=== PATIENT | female | born 1965 | race Caucasian/White ===

== ENCOUNTER 2017-02-08 13:07 | Emergency (ER) | payer BC ==
[2017-02-08 14:54] VITALS: BP 100/59
--- NOTE | 2017-02-08 15:52 | UC ---
Respiratory Complaint HPI - HPI Summary HPI Summary: Increasingly SOB, coughing with speaking or deep insp. Pt was seen 02/03/17 here for this, CXR read as "patchy infiltration in LLL." Was started on doxycycline, had d-dimer that was <200. Has lots of pain/discomfort in L lower ribs/chest, feels like she needs to stretch it out. Constantly air-hungry, breathing deeply. Pt is finding it hard to complete normal household tasks such as laundry. Denies fever, chills, leg pain, or wheezing. - History of Current Complaint Chief Complaint: UCGeneralIllness Stated Complaint: FU PNEUMONIA Time Seen by Provider: 02/08/17 15:31 Hx Obtained From: Patient Hx Last Menstrual Period: n/a ?: No Onset/Duration: Gradual Onset, Lasting Weeks, Still Present Timing: Constant Severity Initially: Mild Severity Currently: Moderate Character: Cough: Nonproductive Aggravating Factors: Exertion, Deep Breaths Associated Signs And Symptoms: Positive: Dyspnea. Negative: Fever, Chills, Wheezing, Hemoptysis, Nasal Congestion - Allergies/Home Medications Allergies/Adverse Reactions: Allergies Allergy/AdvReac Type Severity Reaction Status Date / Time phenylsudephedrine Allergy Palpitation Uncoded 02/08/17 14:54 s SINUS MED Allergy Palpitation Uncoded 02/08/17 14:54 s PMH/Surg Hx/FS Hx/Imm Hx - Additional Past Medical History Additional PMH: lupus Endocrine History: Hypothyroidism Respiratory History: Asthma Psychological History: Anxiety - Surgical History Surgical History: Yes Surgery Procedure, Year, and Place: HYSTERECTOMY 2006 - Family History Known Family History: Negative: Diabetes - Social History Alcohol Use: Rare Substance Use Type: None Smoking Status (MU): Former Smoker When Did the Patient Quit Smoking/Using Tobacco: A TEEN - Immunization History Most Recent Influenza Vaccination: NOT CURRENT Review of Systems Constitutional: Negative Skin: Negative Eyes: Negative ENT: Negative Respiratory: Shortness Of Breath, Cough Cardiovascular: Negative Gastrointestinal: Negative Genitourinary: Negative Motor: Negative Neurovascular: Negative Musculoskeletal: Negative Neurological: Negative Psychological: Negative Is Patient Immunocompromised?: Yes All Other Systems Reviewed And Are Negative: Yes Physical Exam Triage Information Reviewed: Yes Appearance: Well-Nourished, Other: - uncomfortable, changing positions often Vital Signs: Initial Vital Signs Temp 98.6 F 02/08/17 14:49 Pulse 99 11/13/17 14:49 Resp 18 02/08/17 14:49 BP 100/59 02/08/17 14:49 Pulse Ox 97 02/08/17 14:49 Vital Signs Reviewed: Yes Eye Exam: Normal Eyes: Positive: Conjunctiva Clear ENT Exam: Normal ENT: Positive: Normal ENT inspection, Hearing grossly normal, Pharynx normal, TMs normal Neck exam: Normal Respiratory: Positive: Lungs clear, Normal breath sounds, Other: - increased RR , deep-breathing and frequent sighing Cardiovascular: Positive: No Murmur, Tachycardia - 95-100 on exam Musculoskeletal Exam: Normal - walking normally, moving all extremities Psychological Exam: Normal Skin Exam: Normal UC Diagnostic Evaluation - Laboratory O2 Sat by Pulse Oximetry: 97 Respiratory Course/Dx - Differential Dx/Diagnosis Provider Diagnoses: Shortness of breath. bilateral pneumonia Discharge - Discharge Plan Condition: Stable Disposition: HOME Patient Education Materials: Dyspnea (ED) Referrals: Fabricio Leonard LIBRARIAN HEAD [Primary Care Provider] - Additional Instructions: Your exam, symptoms, and chest x-ray do not appear to add up to a picture of classic pneumonia. Since you are still feeling uncomfortable (and possibly getting worse), you will need further testing at the emergency department. Please go directly there as we discussed.
--- NOTE | 2017-02-08 16:05 | RAD ---
INDICATION: Shortness of breath. Diagnosed with pneumonia 5 days ago. Interval worsening. COMPARISON: February 03, 2017 TECHNIQUE: Dual energy PA and routine lateral views of the chest were obtained. REPORT: Interval worsening of alveolar consolidation at the bilateral lung bases with the most confluent consolidation at the LEFT lower lobe. Grossly clear pleural spaces. Negative for pneumothorax. The heart, pulmonary vasculature, and mediastinal contours are unremarkable. IMPRESSION: Worsening of bilateral lower lung zone pneumonia.
== END 2017-02-08 16:21 | disposition home or self-care (01) ==
LOC: UCCORT 13:07
DX: J18.9 Pneumonia, unspecified organism (principal); R06.02 Shortness of breath; E03.9 Hypothyroidism, unspecified; J45.909 Unspecified asthma, uncomplicated; F41.9 Anxiety disorder, unspecified; Z90.710 Acquired absence of both cervix and uterus; Z87.891 Personal history of nicotine dependence
CPT/HCPCS: 71020; 93005; 99212; G0463

== ENCOUNTER 2017-02-08 17:45 | Observation (INO) | payer BC ==
[2017-02-08] MEDS ORDERED: NS 0.9% 1000 ML* 1,000 ML IV ONE (21:06)
[2017-02-08 21:44] LABS: Hematocrit 41 % (35-47); Hemoglobin 14.1 g/dl (12.0-16.0); Mean Corpuscular HGB Conc 34 g/dl (31-36); Mean Corpuscular Hemoglobin 32 pg (27-31); Mean Corpuscular Volume 93 fL (80-97); Mean Platelet Volume 8 um3 (7.4-10.4); Red Blood Count 4.45 10^6/ul (4.0-5.4); Red Cell Distribution Width 12 % (10.5-15); White Blood Count 8.9 10^3/ul (3.5-10.8)
[2017-02-08] MEDS ORDERED: Morphine INJ* 4 MG/ML 1 ML CARPUJECT IV ONE ×2 (21:56→23:43)
[2017-02-08 21:59] LABS: BUN/Creatinine Ratio 13.7 (8-20); Calcium 9.7 mg/dL (8.6-10.3); EGFR African American 59.1 (>60); Potassium 3.7 mmol/L (3.5-5.0); Total Bilirubin 0.5 mg/dL (0.2-1.0)
[2017-02-08 22:00] LABS: Troponin I 0.01 ng/mL (<0.04)
[2017-02-08] MEDS ORDERED: Iodixanol* (CONTRAST) 320 MG/ML 100 ML SDV IV ONE (22:07)
--- NOTE | 2017-02-08 22:07 | ED ---
Elliot Collins Nilda, scribed for Erickson Freedman MD on 02/08/17 at 2106 . Respiratory - HPI Summary HPI Summary: This patient is a 51 year old F presenting to [facility] accompanied by with a chief complaint of dyspnea for the past few days. Five days ago, patient went to Urgent Care in [place] and was diagnosed with PNA and prescribed doxycycline. Today patient returned to Urgent Care because she wasn't improving and found that her PNA worsened. The patient rates the pain 4/10 in severity. Symptoms aggravated by deep breaths and alleviated by position change. Patient reports non-productive cough, left lower rib pain when deep breathing, and chronic leg pain (due to Lupus). Patient denies fever, and urinary frequency and burning. PMHx includes Lupus. - History of Current Complaint Chief Complaint: EDShortnessOfBreath Stated Complaint: DX PNEUMONIA Time Seen by Provider: 02/08/17 20:54 Hx Obtained From: Patient Onset/Duration: Sudden Onset, Lasting Days, Still Present Timing: Constant Current Severity: Moderate Pain Intensity: 4 Character: Cough (Nonproductive) Aggravating Factor(s): Deep Breaths Alleviating Factor(s): Nothing Associated Signs and Symptoms: Dyspnea - Allergy/Home Medications Allergies/Adverse Reactions: Allergies Allergy/AdvReac Type Severity Reaction Status Date / Time phenylsudephedrine Allergy Palpitation Uncoded 02/08/17 14:54 s SINUS MED Allergy Palpitation Uncoded 02/08/17 14:54 s PMH/Surg Hx/FS Hx/Imm Hx Endocrine/Hematology History: Reports: Hx Thyroid Disease - HYPO Neurological History: Reports: Other Neuro Impairments/Disorders - Lupus - Surgical History Surgery Procedure, Year, and Place: HYSTERECTOMY 2006 Infectious Disease History: No Infectious Disease History: Denies: History Other Infectious Disease, Traveled Outside the [place] in Last 30 Days - Family History Known Family History: Positive: Diabetes, Other - phlebitis - Social History Occupation: Employed Full-time Lives: With Family Alcohol Use: Rare Substance Use Type: Reports: None Smoking Status (MU): Former Smoker Review of Systems Negative: Fever Positive: Cough, Other - dyspnea, left lower rib pain with deep breathing Negative: burning, frequency Positive: Other - chronic LE pain All Other Systems Reviewed And Are Negative: Yes Physical Exam Triage Information Reviewed: Yes Vital Signs On Initial Exam: Initial Vitals Temp Pulse Resp BP Pulse Ox 99.3 F 86 24 91/59 95 02/08/17 17:49 02/08/17 17:49 02/08/17 17:49 02/08/17 17:49 02/08/17 17:49 Vital Signs Reviewed: Yes Appearance: Positive: Pain Distress Skin: Positive: Warm, Skin Color Reflects Adequate Perfusion Head/Face: Positive: Normal Head/Face Inspection Eyes: Positive: EOMI Neck: Positive: Nontender, No Lymphadenopathy Respiratory/Lung Sounds: Positive: Clear to Auscultation, Breath Sounds Present Cardiovascular: Positive: RRR. Negative: Murmur Abdomen Description: Positive: Nontender Musculoskeletal: Positive: Strength/ROM Intact Neurological: Positive: Sensory/Motor Intact, Alert, Oriented to Person Place, Time, CN Intact II-III Psychiatric: Positive: Normal - [place] Coma Scale Best Eye Response: 4 - Spontaneous Best Motor Response: 6 - Obeys Commands Best Verbal Response: 5 - Oriented Coma Scale Total: 15 Diagnostics - Vital Signs Vital Signs Temp Pulse Resp BP Pulse Ox 02/08/17 17:49 99.3 F 86 24 /59 95 - Laboratory Lab Results: Lab Results 02/08/17 02/08/17 Range/Units 21:25 21:25 WBC 8.9 (3.5-10.8) 10^3/ul RBC 4.45 (4.0-5.4) 10^6/ul Hgb 14.1 (12.0-16.0) g/dl Hct 41 (35-47) % MCV 93 (80-97) fL MCH 32 H (27-31) pg MCHC 34 (31-36) g/dl RDW 12 (10.5-15) % Plt Count 480 H (150-450) 10^3/ul MPV 8 (7.4-10.4) um3 Neut % (Auto) 63.2 (38-83) % Lymph % (Auto) 22.4 L (25-47) % [place] % (Auto) 9.2 H (1-9) % Eos % (Auto) 4.1 (0-6) % Baso % (Auto) 1.1 (0-2) % Absolute Neuts (auto) 5.6 (1.5-7.7) 10^3/ul Absolute Lymphs (auto) 2.0 (1.0-4.8) 10^3/ul Absolute Monos (auto) 0.8 (0-0.8) 10^3/ul Absolute Eos (auto) 0.4 (0-0.6) 10^3/ul Absolute Basos (auto) 0.1 (0-0.2) 10^3/ul Absolute Nucleated RBC 0 10^3/ul Nucleated RBC % 0.1 INR (Anticoag Therapy) 1.22 H (0.89-1.11) Result Diagrams: 02/08/17 21:25 02/08/17 21:25 Lab Statement: Any lab studies that have been ordered have been reviewed, and results considered in the medical decision making process. - EKG 2114 Cardiac Rate: NL EKG Rhythm: Sinus Rhythm - 75 bpm EKG Interpretation: nml GA, QRS, no STEMI. Disposition - Course Course Of Treatment: This patient is a 51 year old F presenting to [facility] accompanied by with a chief complaint of dyspnea for the past few days. Five days ago, patient went to Urgent Care in [place] and was diagnosed with PNA and prescribed doxycycline. Today patient returned to Urgent Care because she wasn't improving and found that her PNA worsened. The patient rates the pain 4/10 in severity. Symptoms aggravated by deep breaths and alleviated by position change. Patient reports non-productive cough, left lower rib pain when deep breathing, and chronic leg pain (due to Lupus). Patient denies fever, and urinary frequency and burning. PMHx includes Lupus. An EKG reveals NSR, 75 bpm , nml GA, QRS, no STEMI. This patient is s/o to Dr. Harden, pending shift change, awaiting CT Chest. Concern for PE, and that is being ruled out. If she has pneumonia that will be treated per Dr Harden. - Diagnoses Provider Diagnoses: Shortness of breath Discharge - Discharge Plan Condition: Good Disposition: OTHER Discharge Disposition Comment: sign out Dr Harden with ct and dipso pending. Referrals: Fabricio Leonard HIGH SCHOOL COMPUTER SCIENCE TEACHER [Primary Care Provider] - The documentation as recorded by the Elliot bruno Nilda accurately reflects the service I personally performed and the decisions made by me, Erickson Freedman MD.
[2017-02-08] MEDS ORDERED: Ondansetron INJ* 2 MG/ML VIAL IV ONE (23:43)
[2017-02-09 00:07] LABS: C Reactive Protein 50.58 mg/L (< 5.00)
[2017-02-09] MEDS ORDERED: Azithromycin IV(*) 500 MG in NS 0.9% 250 ML* 250 ML IVPB SCH (01:00)
[2017-02-09] MEDS ORDERED: NS 0.9% 1000 ML* 1,000 ML IV SCH ×2 (01:00→15:45)
[2017-02-09] MEDS ORDERED: Albuterol HFA INHALER* 8 gm MDI INH PRN (01:04)
[2017-02-09] MEDS ORDERED: Acetaminophen TAB* 325 MG PO PRN (01:21)
--- NOTE | 2017-02-09 01:47 | ED ---
Ky Collins Nikita, scribed for Enrique Harden MD on 02/08/17 at 2337 . Progress - Progress Note Progress Note: This patient was signed out from Dr. Freedman, pending disposition, awaiting Chest /Thorax CTA. Chest/Thorax CTA reveals negative for pulmonary embolus. Negative for thoracic aortic aneurysm or dissection. However, fairly extensive bilateral lower lobe infiltrates/pneumonia is present. There also smaller infiltrates in the right middle lobe and in the lingula as well as in the left lung apex. these are most likely infectious or inflammatory in nature but since some of the infiltrates have a nodular appearance, recommend followup to make sure these all resolve in that there is no underlying neoplasm. Some enlarged mediastinal nodes as well. Upon re-eval, pt has splinting CP. There are infiltrates on CT with unknown cause. Medications reviewed. Allergies noted. In the ED course, pt was given Morphine and Zofran. Consulted Dr. Boss at 2346 who accepts pt for admission. Pt will be admitted for dx of bilateral pneumonia CP. Pt is agreeable with this plan. Course/Dx - Course Course Of Treatment: ADMIT HOSPITALIST - Diagnoses Provider Diagnoses: Shortness of breath, Pneumonia, Chest pain The documentation as recorded by the Ky bruno Nikita accurately reflects the service I personally performed and the decisions made by , Enrique Harden MD.
[2017-02-09] MEDS: cefTRIAXone VIAL(*) 1,000 MG in NS 0.9% 50 ML* 50 ML IVPB SCH (02:18)
[2017-02-09] MEDS: Azithromycin IV(*) 500 MG in NS 0.9% 250 ML* 250 ML IVPB SCH (03:10)
--- NOTE | 2017-02-09 04:05 | HP ---
CC: Fabricio Leonard NP; Dr. Cardozo* HISTORY AND PHYSICAL: DATE OF ADMISSION: 02/09/17 PRIMARY CARE PROVIDER: Fabricio Leonard NP [facility] ATTENDANT: Dr. Cardozo. CHIEF COMPLAINT: Shortness of breath. HISTORY OF PRESENT ILLNESS: Ms. Pate is a 51-year-old female, who states that in general, she always feel somewhat winded when she is up walking about; however, over the last 1 week, she noted the shortness of breath was much more significant. She states that even walking 5 to 10 feet, she would be so winded that she would have to sit down to catch her breath. The patient denies any fevers or chills. She denies any significant cough or sputum production. The patient states that her shortness of breath was so bad last week that she went to urgent care where she had a chest x-ray performed and was diagnosed with pneumonia. The patient states that she was surprised by this as she does not feel ill; however, she did take her antibiotic as prescribed. The patient denies any recent long distance travel. She does state that she has had left- sided chest pain especially on the day prior to admission. She states that if she puts pressure to the left side of her chest, it felt better. She describes this as pain with deep inspiration. Because of this, she went back to urgent care where she had an x-ray performed, which revealed worsened infiltrate and therefore she was referred to the emergency room for evaluation. PAST MEDICAL HISTORY: 1. Lupus. 2. IBS - constipation predominant. 3. Hypothyroidism. PAST SURGICAL HISTORY: 1. Hysterectomy. 2. . MEDICATIONS: 1. Wellbutrin SR 150 mg p.o. daily. 2. Vitamin D3 4000 units p.o. daily. 3. Topamax 100 mg p.o. daily. 4. Pilocarpine HCl 5 mg p.o. t.i.d. 5. Levothyroxine 100 mcg p.o. alternating with 75 mg p.o. every other day. 6. Hydroxychloroquine 400 mg p.o. daily. 7. Estradiol 2 mg p.o. daily. 8. Doxycycline 100 mg p.o. b.i.d. 9. Albuterol HFA 2 puffs inhaled q.4 hours p.r.n. shortness of breath. ALLERGIES: PSEUDOEPHEDRINE. FAMILY HISTORY: Mom is living. She is 76, has hemochromatosis. Dad is also living, he is 77. He was recently diagnosed with dementia. SOCIAL HISTORY: The patient smoked in her teens but has not done so since. She denies any routine alcohol use. 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. She is . She has 3 children. Her , Chencho, is her healthcare proxy. REVIEW OF SYSTEMS: The patient denies any fevers or chills. She states her appetite has been poor for weeks. She admits to left-sided chest pain as above. No lower extremity edema. She admits to shortness of breath. She does have an occasional cough. No nausea, vomiting, abdominal pain. She does admit to constipation. No hematochezia, no hematuria. No dysuria. No focal weakness or sensory loss. No sudden changes in vision. No dysphagia. No joint pains or muscle pains out of ordinary. No rashes. No anxiety or depression. PHYSICAL EXAMINATION GENERAL: The patient is a well-developed, middle-aged female, sitting up in the stretcher, appearing to be in no acute distress. VITAL SIGNS: Blood pressure 102/67, pulse 79, respirations 13, temp 99.3, O2 sat 94% on room air. HEENT: Pupils are equal. They are round, they react to light. Extraocular muscles intact. Oropharynx is clear. Oral mucosa is moist. There is no submandibular, cervical, or supraclavicular adenopathy. Thyroid is not enlarged. No thyroid nodules are noted. PULMONARY: There are bilateral lower lobe coarse crackles. CARDIAC: Normal S1, S2. Regular rate and rhythm. I did not appreciate any murmurs. There is no lower extremity edema. ABDOMEN: Bowel sounds present. Abdomen is soft, nontender, nondistended. MUSCULOSKELETAL: There is no cyanosis or clubbing in the digits. There is full active range of motion of all 4 extremities. NEURO: Cranial nerves II through XII are grossly intact. Sensation is intact to light touch throughout. Strength is 5/5 and symmetric in both upper and lower extremities bilaterally. PSYCH: The patient is alert. She is oriented x3. Affect appears appropriate. SKIN: Warm and dry. There are no rashes. DIAGNOSTIC STUDIES/LAB DATA: WBC 8.9, hemoglobin 14.1, hematocrit 41, platelets 480. INR 1.22. Sodium 137, potassium 3.7, chloride 105, CO2 23, BUN 17, creatinine 1.24, glucose 99, lactic acid 0.9, calcium 9.7. Bilirubin 0.5, AST 12, ALT 11, alk phos 129. Troponin 0.01. CRP 50.58. Albumin 4.0. EKG reveals normal sinus rhythm without any acute ST-T wave abnormalities. CTA chest negative for pulmonary embolism, negative for thoracic aortic aneurysm or dissection. Fairly extensive bilateral lower lobe infiltrates/ pneumonia is present. There are also smaller infiltrates in the right middle lobe and lingula as well as left lung apex. These are most likely infectious or inflammatory in nature. There are some enlarged mediastinal lymph nodes as well. ASSESSMENT AND PLAN: Ms. Pate is a 51-year-old female with history of lupus, on Plaquenil and hypothyroidism, who presents to the emergency room with complaints of worsened shortness of breath with concern for infiltrate on chest x-ray. 1. Dyspnea. The etiology of this is not completely clear. While pneumonia has been her given diagnosis, I do not necessarily agree with this. The patient does not have a fever, elevated white blood cell count, significant cough or sputum production to go along with infiltrates seen on imaging, making pneumonia less likely. Given the appearance, however, I will place the patient on ceftriaxone and azithromycin for now. I am more suspicious that the infiltrates seen on chest x- ray and CTA are inflammatory in nature. It seems unlikely that this represents acute pneumonitis as she does not have significant fever or cough. However, I do think this needs to be considered given her history of lupus. Her imaging would be consistent with this. Interstitial lung disease would be a possibility; however, it sounds as though she was not too terribly symptomatic and then more suddenly became symptomatic, which I would not expect to happen if she had a progressive interstitial lung disease. I think Pulmonary consultation is warranted. I am going to hold off on any steroids at this point; however, they likely will be indicated. The patient has been complaining also of left-sided chest pain with deep inspiration. I suspect this a component of pleurisy, again likely related to her lupus. This is not terribly symptomatic for the patient; therefore, I will hold off on giving her any significant pain medication, though I will have Tylenol ordered. 2. Hypothyroidism. The patient will be maintained on her usual dose of Synthroid. 3. Lupus. The patient will be maintained on her usual dose of Plaquenil. 4. Depression. The patient will be maintained on her usual doses of Wellbutrin and Topamax. 5. DVT prophylaxis. According to the Adult Thrombosis Prophylaxis Risk Factor Assessment Guide, the patient has a total risk factor score of 1 making her low risk; however, given her history of lupus, she will be placed on heparin 5000 units subcutaneous q.12 hours. 6. Code status is full and again the patient indicates that her is her healthcare proxy. TIME SPENT: Sixty-five minutes was spent admitting this patient. [id number]/[facility] #: [id number] CASSI
[2017-02-09] MEDS: Heparin VIAL(*) 5000 UNITS/ML VIAL (FIVE THOUSAND) SUBCUT SCH ×2 (04:53→13:35)
[2017-02-09] MEDS ORDERED: Levothyroxine TAB* 75 MCG TAB PO SCH (06:00)
[2017-02-09 06:04] LABS: Urine Bilirubin Negative (Negative); Urine Glucose Negative (Negative); Urine Nitrite Negative (Negative)
--- NOTE | 2017-02-09 07:23 | RAD ---
INDICATION: Shortness of breath, evaluate for pulmonary embolism. COMPARISON: Comparison is made with a prior chest x-ray study from February 08, 2017. TECHNIQUE: A CT angiogram of the chest was performed with intravenous following intravenous injection of 79 ml of Visipaque 320 nonionic contrast. Contiguous axial sections were obtained from the lung apices through the lung bases. Images were reconstructed in the coronal and sagittal planes. FINDINGS: There is relatively homogeneous opacification of the pulmonary arteries. No intraluminal filling defect or pulmonary embolism is seen. The heart is within normal limits in size. No pericardial effusion is present. The thoracic aorta is normal in caliber and demonstrates homogeneous contrast opacification. There are enlarged mediastinal lymph nodes in the aorticopulmonary window and subcarinal regions measuring up to 1.3 cm in transverse dimension. There is an enlarged right hilar lymph node measuring up to 1.4 cm in transverse dimension. There are prominent infiltrates present in both lower lobes with lesser involvement of the right middle lobe and left upper lobe toward the lung base. No pleural effusion is seen. No acute findings are seen on the visualized images of the upper abdomen. No significant focal osseous abnormality is seen. IMPRESSION: 1. NO EVIDENCE FOR PULMONARY EMBOLISM. 2. PROMINENT BILATERAL LOWER LOBE INFILTRATES MOST CONSISTENT WITH PNEUMONIA. 2. MILDLY ENLARGED RIGHT HILAR AND MEDIASTINAL LYMPH NODES.
[2017-02-09] MEDS: Hydroxychloroquine TAB* 200 MG PO SCH (07:37)
[2017-02-09] MEDS: Topiramate TAB(*) 100 MG PO SCH (07:37)
[2017-02-09] MEDS: buPROPion SR TAB.SR* 150 MG PO SCH (07:37)
[2017-02-09] MEDS: Cholecalciferol TAB* 1000 UNITS PO SCH (07:37)
[2017-02-09] MEDS: PILOCARPINE 5 MG PO SCH ×3 (07:38→21:02)
[2017-02-09] MEDS ORDERED: Levothyroxine TAB* 100 MCG TAB PO SCH (09:00)
[2017-02-09 11:21] LABS: Erythrocyte Sed Rate 30 mm/Hr (0-14)
[2017-02-09 11:31] LABS: Ferritin 81.7 ng/mL (11-307)
[2017-02-09] MEDS ORDERED: NS 0.9% 500 ML* 500 ML IV ONE (15:51)
--- NOTE | 2017-02-09 16:17 | PN ---
Subjective Date of Service: 02/09/17 Interval History: Patient has continued SOB and cough that is non-productive at this time. Patient gets significant SOB when walking to the bathroom. Patient denies SOB, N /V, Abdominal Pain, Dysuria, changes in urination, or other complaint. Patient complains of an intermittent pain in her flank that feels like a cramp and gets better with stretching. Patient had a BP in the afternoon of 70/30 confirmed with manual check. Patient asymptomatic at that time. Family History: Unchanged from Admission Social History: Unchanged from Admission Past Medical History: Unchanged from Admission Objective Active Medications: Acetaminophen (Tylenol Tab*) 650 mg PO Q4H PRN PRN Reason: PAIN Last Admin: 02/09/17 12:11 Dose: 650 mg Albuterol (Ventolin Hfa Inhaler*) 2 puff INH Q4HR PRN PRN Reason: WHEEZING Bupropion HCl (Wellbutrin Sr Tab*) 150 mg PO DAILY [facility] Last Admin: 02/09/17 07:37 Dose: 150 mg Cholecalciferol (Vitamin D Tab*) 4,000 units PO DAILY [facility] Last Admin: 02/09/17 07:37 Dose: 4,000 units Heparin Sodium (Porcine) (Heparin Vial(*)) 5,000 units SUBCUT Q8HR [facility] Last Admin: 02/09/17 13:35 Dose: 5,000 units Hydroxychloroquine Sulfate (Plaquenil Tab*) 400 mg PO DAILY [facility] Last Admin: 02/09/17 07:37 Dose: 400 mg Ceftriaxone Sodium 1,000 mg/ (Sodium Chloride) 50 mls @ 200 mls/hr IVPB Q24H [facility] Last Admin: 02/09/17 02:18 Dose: 200 mls/hr Azithromycin 500 mg/ Sodium (Chloride) 250 mls @ 250 mls/hr IVPB 0230 [facility] Last Admin: 02/09/17 03:10 Dose: 250 mls/hr Sodium Chloride (Ns 0.9% 500 Ml Bag*) 500 mls @ 1,000 mls/hr IV ONCE ONE Stop: 02/09/17 16:20 Last Admin: 02/09/17 15:55 Dose: 1,000 mls/hr Levothyroxine Sodium (Synthroid Tab*) 75 mcg PO EVERY OTHER DAY@0600 [facility] Last Admin: 02/09/17 04:53 Dose: 75 mcg Levothyroxine Sodium (Synthroid Tab*) 100 mcg PO EVERY OTHER DAY@0600 [facility] Pilocarpine HCl (Pilocarpine Tab (Nf)) 5 mg PO TID [facility] PRN Reason: Protocol Last Admin: 02/09/17 12:08 Dose: Not Given Topiramate (Topamax(*)) 100 mg PO DAILY [facility] Last Admin: 02/09/17 07:37 Dose: Not Given Vital Signs 02/09/17 02/09/17 02/09/17 01:39 01:53 07:56 Temperature 98.5 F 98.1 F 98.6 F Pulse Rate 78 76 Respiratory 16 18 Rate Blood Pressure 103/56 103/54 (mmHg) O2 Sat by Pulse 97 96 Oximetry 02/09/17 02/09/17 11:15 15:33 Temperature 98.5 F 98.3 F Pulse Rate 83 78 Respiratory 20 20 Rate Blood Pressure 75/37 (mmHg) O2 Sat by Pulse 95 98 Oximetry Oxygen Devices in Use Now: None Appearance: Patient is a 51yo female who appears stated age and is sitting in the bed in [facility]. Eyes: No Scleral Icterus, PERRLA Ears/Nose/Mouth/Throat: NL Teeth, Lips, Gums, Clear Oropharnyx, Mucous Membranes Moist Neck: NL Appearance and Movements; NL JVP, Trachea Midline Respiratory: Symmetrical Chest Expansion and Respiratory Effort, - - Velcro Rales in B/L LL no other adventitous lung sounds. Cardiovascular: NL Sounds; No Murmurs; No JVD, RRR, No Edema Abdominal: NL Sounds; No Tenderness; No Distention, No Hepatosplenomegaly Lymphatic: No Cervical Adenopathy Extremities: No Edema, No Clubbing, Cyanosis Skin: No Rash or Ulcers, No Nodules or Sclerosis Neurological: Alert and Oriented x 3, NL Gait, NL Muscle Strength and Tone Result Diagrams: 02/08/17 21:25 02/08/17 21:25 Additional Lab and Data: Lab Results Assess/Plan/Problems-Billing Assessment: Patient is a 51yo female with a PMH significant for SLE, Sjogrens, and IBS who presents with chronic SOB worsening over the past couple weeks, treated with doxycycline to no affect. Patient is stable on room air and is being treated for atypical pneumonia. - Patient Problems (1) Atypical pneumonia Current Visit: Yes Status: Acute Code(s): J18.9 - PNEUMONIA, UNSPECIFIED ORGANISM SNOMED Code(s): 043937892 Comment: Increasing SOB and dry cough. Treated with Doxycycline for 1 week with no improvement. Appreciate pulmonology consult. Recommends continuing to treat as pneumonia and reassess in 4-6 weeks with repeat XR. No likely to be due to SLE or other rheumatologic process. Continue Ceftriaxone and Azithromycin. (2) Systemic lupus erythematosus Current Visit: Yes Status: Acute Code(s): M32.9 - SYSTEMIC LUPUS ERYTHEMATOSUS, UNSPECIFIED SNOMED Code(s): 97499952 Comment: Patient has SLE by history but has a negative SONIA on records available in the record. Patient's symptoms mainly consist of lower extremity pain. Patient has CKD which she denies knowledge of. Continue Plaquenil. (3) Sjogren's disease Current Visit: Yes Status: Acute Code(s): M35.00 - SICCA SYNDROME, UNSPECIFIED SNOMED Code(s): 14999219 Comment: Patient has Sjogren's by history as well. Patient complains of dry mouth and dry eyes. Continue pilocarpine. (4) CKD (chronic kidney disease) Current Visit: Yes Status: Acute Code(s): N18.9 - CHRONIC KIDNEY DISEASE, UNSPECIFIED SNOMED Code(s): 798826978 Comment: Stage III, Slightly above baseline. Possibly due to SLE with no other risk factors. Will monitor. (5) IBS (irritable bowel syndrome) Current Visit: Yes Status: Acute Comment: Has abdominal pain on exam. Constipation predominant. No other current symptoms. (6) Hypotension Current Visit: Yes Status: Acute Comment: Patient had a single episode of asymptomatic hypotension at 70/30. Will give 500ml bolus and then 100ml/hr fluids and monitor closely. (7) Full code status Current Visit: Yes Status: Acute Code(s): Z78.9 - OTHER SPECIFIED HEALTH STATUS SNOMED Code(s): 522683322 (8) DVT prophylaxis Current Visit: Yes Status: Acute Code(s): QFC1523 - SNOMED Code(s): 475184564 Comment: Heparin SubQ Status and Disposition: Patient is admitted inpatient for atypical pneumonia in an immunosuppressed patient. Will discharge when medically able.
--- NOTE | 2017-02-09 21:30 | CONS ---
PULMONARY CONSULTATION REPORT: DATE OF CONSULT: 02/09/17 CONSULTATION REQUESTED BY: FELICITA Gottlieb REASON FOR CONSULT: Evaluation of shortness of breath, abnormal CT chest. HISTORY OF PRESENT ILLNESS: The patient is a 51-year-old female with a history of lupus, IBS, hypothyroidism, on hydroxychloroquine. The patient presented to the emergency room for evaluation of shortness of breath. The patient reports shortness of breath that was noticeable since last Wednesday. The patient was seen in urgent care, chest x-ray showed pneumonia and was started on doxycycline. The patient denies significant fevers or chills. The patient reports cough starting this morning since admission. The patient denies recent travel, loss of weight or appetite. The patient reports sick contacts with her son having viral syndrome. The patient's shortness of breath did not improve with the antibiotic and she returned back to the emergency room. Repeat chest x -ray revealed possible progression of the infiltrates and she was admitted for further evaluation. The patient had CT of the chest for evaluation of possible pulmonary embolism in the ED. I have personally reviewed CT of the chest results and with the patient - no evidence of filling defects in the pulmonary arteries. The patient noted to have dense consolidations bilaterally in the lower lobes with subpleural location. The patient also has patchy opacity in the left upper lobe area. The patient with mildly enlarged mediastinal nodes in the aortic pulmonary window and also in the subcarinal region measuring about 1.3 cm in transverse diameter with enlarged right hilar lymph node measuring 1.4. The patient was started on Rocephin and Zithromax. The patient was seen and examined at bedside earlier this morning. The patient reports mild intermittent cough. The patient reports no significant change in symptoms. Her main complaint at this time is significant fatigue. She denies headache, chest pain, palpitations, dizziness, constipation, urinary complaints. PAST MEDICAL HISTORY: 1. Lupus, on hydroxychloroquine. 2. IBS, constipation predominant. 3. Hypothyroidism. PAST SURGICAL HISTORY: 1. Hysterectomy. 2. . MEDICATIONS: 1. Wellbutrin 150 mg p.o. daily. 2. Vitamin D3 4000 units p.o. daily. 3. Topamax 100 mg p.o. daily. 4. Pilocarpine 5 mg p.o. t.i.d. 5. Levothyroxine 100 mcg alternating with 75 mcg p.o. 6. Hydroxychloroquine 400 mg daily. 7. Estradiol 2 mg p.o. daily. 8. Doxycycline 100 mg p.o. b.i.d. at the time of admission. 9. Albuterol 2 puffs q.4 hours as needed for shortness of breath. ALLERGIES: PSEUDOEPHEDRINE. FAMILY HISTORY: Mother has a history of hemochromatosis. Father has dementia. SOCIAL HISTORY: Smoked very little when she was in her teens. No alcohol or drug abuse. She works as a title i director at [employer] and reports some sick contacts. She is and lives at home with her . REVIEW OF SYSTEMS: All 14 systems reviewed and as per HPI. PHYSICAL EXAM: The patient in bed, in no apparent distress, coughing intermittently during the interview. Vital Signs: Temperature 98.3, pulse 78 beats per minute, respiratory rate 20 per minute, O2 sat 96% on room air, blood pressure 103/54. HEENT: Pupils equal and reactive to light. Mucous membranes moist. Sclerae anicteric. Lungs: Good air entry bilaterally, crackles at bases. Cardiovascular: S1, S2 present and regular. No murmurs. Abdomen: Soft, nontender, nondistended. Bowel sounds present. Skin: No rash or bruits. Musculoskeletal: Normal range of motion. No edema. Neuro: No focal deficits. DIAGNOSTIC STUDIES/LAB DATA: The CBC showed WBC count of 8.9, hemoglobin 14.1, hematocrit 41, platelet count 480. ESR elevated at 30, CRP elevated at 50, lactic acid within normal limits. Sodium and potassium within normal limits, bicarb of 23 with normal anion gap, procalcitonin less than 0.1. LFTs within normal limits. INR is normal. CT of the chest as described above in HPI. IMPRESSION/RECOMMENDATIONS: 51-year-old female with history of lupus, on hydroxychloroquine, with possible sick contacts recently, with dense consolidations bilaterally at the bases and patchy airspace opacity in left upper lobe, also with shortness of breath and pleuritic chest pain on the left. Symptoms and exam findings likely consistent with atypical pneumonia. Bronchiolitis obliterans with organizing pneumonia/cryptogenic organizing pneumonia is also possibility given underlying connective tissue disease. She was recently treated with antibiotics and making the elevation in white count less noticeable. She did not have any prior lab work done. She does not have evidence of significant eosinophilia to attribute to drug toxicity or eosinophilic pneumonia. She is hemodynamically stable at this time. Interstitial lung disease with underlying lupus is possibility; however, she would have been much more sick due to that. Atypical pneumonia is most likely the etiology in her case. Would continue with this broad spectrum antibiotic coverage for now. Recommend adequate pain control. Avoid splinting. Would recommend incentive spirometry usage. If her condition changes or worsens, will then consider starting on IV steroids and considering lung biopsy. No evidence of pulmonary embolism. Less likely to be malignancy given the presentation. Thank you for allowing me to participate in the care of your patient. Will follow up with you. Above recommendations were discussed with Enrique Liu NP, the patient, and the patient's at bedside. [id number]/[facility] #: [id number] CASSI
[2017-02-10] MEDS: cefTRIAXone VIAL(*) 1,000 MG in NS 0.9% 50 ML* 50 ML IVPB SCH (02:23)
[2017-02-10] MEDS: Heparin VIAL(*) 5000 UNITS/ML VIAL (FIVE THOUSAND) SUBCUT SCH ×2 (02:24→05:19)
[2017-02-10] MEDS: Azithromycin IV(*) 500 MG in NS 0.9% 250 ML* 250 ML IVPB SCH (02:50)
[2017-02-10] MEDS ORDERED: Levothyroxine TAB* 100 MCG TAB PO SCH (06:00)
[2017-02-10 07:59] LABS: Hematocrit 39 % (35-47); Mean Corpuscular HGB Conc 34 g/dl (31-36); Mean Corpuscular Hemoglobin 32 pg (27-31); Mean Corpuscular Volume 94 fL (80-97); Mean Platelet Volume 8 um3 (7.4-10.4); Red Blood Count 4.11 10^6/ul (4.0-5.4); Red Cell Distribution Width 12 % (10.5-15); White Blood Count 7.7 10^3/ul (3.5-10.8)
[2017-02-10 08:05] VITALS: BP 93/49
[2017-02-10 08:16] LABS: Albumin 3.4 g/dL (3.2-5.2); Calcium 9.1 mg/dL (8.6-10.3); EGFR African American 63.2 (>60); EGFR Non-African American 49.2 (>60); Globulin 2.6 g/dL (2-4); Magnesium 1.9 mg/dL (1.9-2.7); Potassium 3.9 mmol/L (3.5-5.0); Total Bilirubin 0.3 mg/dL (0.2-1.0)
[2017-02-10] MEDS: Cholecalciferol TAB* 1000 UNITS PO SCH (10:01)
[2017-02-10] MEDS: buPROPion SR TAB.SR* 150 MG PO SCH (10:01)
[2017-02-10] MEDS: PILOCARPINE 5 MG PO SCH (10:07)
[2017-02-10] MEDS: Topiramate TAB(*) 100 MG PO SCH (10:08)
[2017-02-10] MEDS: Hydroxychloroquine TAB* 200 MG PO SCH (10:25)
[2017-02-10] MEDS ORDERED: Influenza VAC *QUAD* 2017-18* 0.5 ML SYRINGE IM ONE (11:00)
--- NOTE | 2017-02-11 16:11 | DS ---
CC: Fabricio Leonard NP; Dr. Cardozo * DISCHARGE SUMMARY: DATE OF ADMISSION: 02/09/17 DATE OF DISCHARGE: 02/10/17 ATTENDING PHYSICIAN WHILE IN THE HOSPITAL: Dr. Darnell Trevino * (DICTATED BY FELICITA ORANTES) PRIMARY CARE PHYSICIAN: Fabricio Leonard NP. METAL MODEL BUILDER: Dr. Cardozo of [facility]. CONSULTING PROVIDERS: Dr. Pari Rowley, of Pulmonology. PRIMARY DISCHARGE DIAGNOSIS: Atypical pneumonia. SECONDARY DISCHARGE DIAGNOSES: 1. Systemic lupus erythematosus. 2. Sjogren syndrome. 3. Hypothyroidism. 4. Irritable bowel syndrome. 5. Constipation, predominant. STUDIES DONE WHILE IN THE HOSPITAL: 1. Electrocardiogram from 02/08/17 shows normal sinus rhythm, normal axis, no ST segment changes, and no other abnormalities, probable left atrial enlargement. Repeat EKG from 02/08/17 shows artifact with no other significant changes. 2. Chest thorax CTA from 02/08/17 read as no evidence of pulmonary embolism, prominent bilateral lower lobe infiltrates most consistent with pneumonia, mildly large right hilar and mediastinal lymph nodes. MEDICATIONS AT DISCHARGE: 1. Levothyroxine 75 mcg 1 tab p.o. every other day. 2. Bupropion 150 mg p.o. daily. 3. Topiramate 100 mg p.o. daily. 4. Pilocarpine 5 mg p.o. t.i.d. 5. Plaquenil 400 mg p.o. daily. 6. Estradiol 2 mg daily. 7. Levothyroxine 100 mcg p.o. every other day. 8. Albuterol inhaler 1 puff inhalation as needed. 9. Azithromycin 250 mg p.o. daily x3. 10. Tylenol With Codeine 5 mL p.o. q.4 hours as needed for cough. 11. Cefuroxime 500 mg p.o. b.i.d. as needed x20. 12. Benzonatate 100 mg p.o. t.i.d. as needed for cough. New medications at discharge: 1. Azithromycin. 2. Tylenol With Codeine. 3. Cefuroxime. 4. Benzonatate. Medications discontinued at discharge: 1. Doxycycline. HOSPITAL COURSE: This is a brief summary of the patient's presentation. For more details, please see the history and physical from Dr. Desiree Peters on . In brief, the patient is a 51-year-old female with a past medical history as above, who over the past couple of weeks had shortness of breath, has been chronic, but over the past week it has gotten more significant. The patient states she was unable to walk 5 to 10 feet. The patient had no fevers or chills. The patient had chronic dry cough with sputum production. The patient was diagnosed with pneumonia at urgent care 1 week ago and was given a 10-day course of doxycycline which her symptoms were unresponsive to. The patient also had left-sided chest pain that was felt better with palpation and stretching. The patient was admitted to the hospital and treated for community- acquired pneumonia. However, the patient's presentation and past medical history might have been indicative of inflammatory lung disease. Pulmonology was consulted. Please see pulmonology consultation for more details. However, the patient was believed to have atypical pneumonia at this point, though bronchiolitis obliterans and cryptogenic organizing pneumonia were among the connective tissue disorders that cannot be excluded at this time. Pulmonology recommended followup chest x-ray in 4 to 6 weeks to document resolution of the patient's infiltrates. The patient was kept overnight. The patient felt slightly better while in the hospital. The patient had 1 episode of hypotension that was asymptomatic that was responsive to fluids and her blood pressure remained at her baseline, was approximately 100/50 for the duration of her hospitalization. The patient was kept overnight for a second dose of IV ____ _ due to treatment failure with doxycycline initially and relative immunocompromised state due to lupus and Plaquenil therapy. The patient states today she felt better. On the morning of 02/10/17, the patient had no significant laboratory abnormalities except for slightly improved creatinine which was down to her baseline based on laboratory results obtained at this hospital. The patient had no growth on her blood cultures. The patient was ready to be discharged home. The patient already has an appointment to see her medical director/head team physician in [place] tomorrow. PHYSICAL EXAM ON THE DAY OF DISCHARGE: General: The patient is a 51-year-old female who appears her stated age and is sitting in the bed in no acute distress with occasional cough. Vital Signs: At discharge, temperature 98.4, pulse rate 72, respiratory rate 16, oxygen saturation 95% on room air, blood pressure 93/49. HEENT: Head normocephalic, atraumatic. Sclerae anicteric. No conjunctival injection. Mucous membranes moist. No pharyngeal erythema. Neck : Supple, nontender. No lymphadenopathy. No carotid bruit auscultated. Cardiac: Regular rate and rhythm. No clicks, murmurs, gallops, or rubs. Pulse is 2+ in the bilateral dorsalis pedis, posterior tibialis and radial areas. No edema. Respiratory: There are crackles in the bilateral lower lobes which sounded like Velcro rales. Good air exchange bilaterally. Otherwise, no other adventitious lung sounds. Abdomen: Soft, nontender, nondistended. Bowel sounds present, normoactive in all four quadrants. Genitourinary: No suprapubic tenderness or CVA tenderness. Skin: Clean, dry, and intact without rash. Neurological: Cranial nerves II through XII grossly intact. Alert and oriented x2. Normal gait. Psychiatric: Pleasant and cooperative. LABORATORY DATA ON DAY OF DISCHARGE: White blood cell count 7.7, red blood cell count 4.11, hemoglobin 13.0, hematocrit 39, MCV 94, MCH 32, MCHC 34, RDW 12 , platelet count 399. Sodium 137, potassium 3.9, chloride 108, carbon dioxide 23, anion gap 6, BUN 14, creatinine 1.17, glucose 94, calcium 9.1, magnesium 1.9. Bilirubin 0.3, ALT 12, alkaline phosphatase 111, total protein 6.0, albumin 3.4, globulin 2.6, albumin-globulin ratio 1.3. Other laboratory values of note, procalcitonin less than 0.1 on admission. CRP 50.58, creatinine 1.24, INR 1.22, ESR 30. DISCHARGE PLAN: The patient will be discharged home. The patient to follow up with her primary care doctor within 1 week and her medical director/head team physician as scheduled tomorrow. The patient was sent with a copy of her CT scan and her pulmonary consultation to take to her medical director/head team physician to investigate the possibility of rheumatological disease and to schedule a followup imaging as indicated. The patient will finish the course of her antibiotics covering for typical and atypical organisms, although this is believed to be atypical pneumonia. The patient will also have cough suppressant medications as above. The patient should return to the hospital for any alarming symptoms such as significant worsening shortness of breath, chest pain, fevers, chills, or other signs of infection. The patient should have activity as tolerated. The patient should have a regular unrestricted diet. Approximately 60 minutes was spent on this discharge, 30 of which was spent face -to- face with the patient, obtaining history and physical, and describing the treatment plan. FELICITA ORANTES [id number]/[facility] #: [id number] CASSI
== END 2017-02-10 11:30 | disposition home or self-care (01) ==
LOC: ED 17:45 → MED 02-09 01:00
PROVIDERS: ADMIT Hospitalist; ATTEND Hospitalist
DX: J18.9 Pneumonia, unspecified organism (principal); M32.9 Systemic lupus erythematosus, unspecified; M35.00 Sjogren syndrome, unspecified; E03.9 Hypothyroidism, unspecified; K58.9 Irritable bowel syndrome, unspecified; K59.00 Constipation, unspecified; Z79.899 Other long term (current) drug therapy; Z88.8 Allergy status to other drugs, medicaments and biological substances; Z23 Encounter for immunization; R06.02 Shortness of breath; Z87.891 Personal history of nicotine dependence; N18.9 Chronic kidney disease, unspecified
CPT/HCPCS: 36415; 71275; 80053; 81003; 82728; 83605; 83735; 84145; 84484; 85025; 85610; 85652; 86140; 87040; 90471; 90686; 93005; 96365; 96366; 96367; 96372; 96375; 99284; A9270-GY; G0008; G0378; J0456; J0696; J1644; J2270; J2405; Q9967

== ENCOUNTER 2017-02-24 11:34 | Emergency (ER) | payer BC ==
[2017-02-24 11:53] VITALS: BP 121/68
[2017-02-24] MEDS ORDERED: Amoxicillin/Clavulanate TAB* 875 MG PO ONE (12:57)
[2017-02-24] MEDS ORDERED: Ibuprofen TAB* 600 MG PO ONE (12:59)
--- NOTE | 2017-02-24 12:59 | UC ---
Throat Pain/Nasal Yonis HPI - HPI Summary HPI Summary: 51 female presents to with complaints of right sided sinus congestion and pressure that began 2-3 days ago and has not improved. Has been using mali pots and taking tylenol without much relief. Was unsure if it was one of her teeth or her sinus. Recently in hospital for pneumonia a few weeks ago. Not currently taking any medications. Just stopped her prednisone a few days ago. Admits to nasal congestion. Feels it is difficult for her to get rid of the congestion and mucus build up. No other complaints. Admits to some headache and right eye pressure. No known fever/chills. No cough of difficulty breathing. Also states her ears having been popping and feels pressure. PMHx of lupus and hypothyroid. - History of Current Complaint Chief Complaint: UCRespiratory Stated Complaint: SINUSES Time Seen by Provider: 02/24/17 12:04 Hx Obtained From: Patient Hx Last Menstrual Period: n/a Onset/Duration: Sudden Onset, Lasting Days, Still Present Severity: Moderate Pain Intensity: 5 Pain Scale Used: 0-10 Numeric Cough: None Associated Signs & Symptoms: Positive: Sinus Discomfort, Nasal Discharge - Allergies/Home Medications Allergies/Adverse Reactions: Allergies Allergy/AdvReac Type Severity Reaction Status Date / Time Phenylephrine Allergy Unknown Palpitation Verified 02/24/17 11:47 s Pseudoephedrine Allergy Unknown Palpitation Verified 02/24/17 11:47 s PMH/Surg Hx/FS Hx/Imm Hx Endocrine History: Hypothyroidism Neurological History: Other Other Neurological History: lupus - Surgical History Surgical History: Yes Surgery Procedure, Year, and Place: HYSTERECTOMY 2006 - Family History Known Family History: Positive: Diabetes, Other - phlebitis - Social History Alcohol Use: None Substance Use Type: None Smoking Status (MU): Former Smoker Have You Smoked in the Last Year: No When Did the Patient Quit Smoking/Using Tobacco: A TEEN - Immunization History Most Recent Influenza Vaccination: 2017 Most Recent Pneumonia Vaccination: never Review of Systems Constitutional: Negative ENT: Nasal Discharge, Sinus Congestion, Sinus Pain/Tenderness Respiratory: Negative Cardiovascular: Negative Neurological: Headache Is Patient Immunocompromised?: Yes - lupus, recent steroid use x 10 days All Other Systems Reviewed And Are Negative: Yes Physical Exam Triage Information Reviewed: Yes Appearance: Well-Appearing, No Pain Distress, Well-Nourished Vital Signs: Initial Vital Signs Temp 97.9 F 02/24/17 11:49 Pulse 73 02/24/17 11:49 Resp 16 02/24/17 11:49 BP 121/68 02/24/17 11:49 Pulse Ox 100 02/24/17 11:49 Vital Signs Reviewed: Yes Eyes: Positive: Conjunctiva Clear ENT: Positive: Pharynx normal, Nasal congestion, TMs normal, Sinus tenderness, Uvula midline. Negative: Nasal drainage, TM bulging, TM dull, TM red, Tonsillar swelling, Tonsillar exudate Dental: Positive: Percussion Tenderness @ - maxillary right side. Negative: Dental Fracture @, Abscess @, Cervical Lymphadenopathy Neck exam: Normal Neck: Positive: Supple, Nontender, No Lymphadenopathy Respiratory: Positive: Chest non-tender, Lungs clear, Normal breath sounds, No respiratory distress, No accessory muscle use Cardiovascular: Positive: RRR, No Murmur, Pulses Normal, Brisk Capillary Refill Abdomen Description: Positive: Nontender, Soft Bowel Sounds: Positive: Present Neurological: Positive: Alert Skin Exam: Normal Throat Pain/Nasal Course/Dx - Course Course Of Treatment: due to HPI and PE findings appears patient is suffering from a sinusitis. will treat with augmentin, flonase and ibuprofen. continue hot compresses, hot showers, increasing fluids, mali pots and rest. Aware of worsening signs and symptoms to watch out for. follow up with PCP. no concern for other etiology at this time. - Differential Dx/Diagnosis Differential Diagnosis/HQI/PQRI: Sinusitis, URI, Other - tooth ache, dental abscess Provider Diagnoses: acute sinusitis Discharge - Discharge Plan Condition: Stable Disposition: HOME Prescriptions: Amoxicillin/Clavulanate TAB* [Augmentin TAB 875*] 875 mg PO BID #19 tab Fluticasone NASAL SPRAY 50MCG* [Flonase NASAL SPRAY 50MCG*] 2 spray BOTH NARES DAILY #1 btl Patient Education Materials: Sinusitis (ED), Warm Compress or Soak (ED) Referrals: Fabricio Leonard NP [Primary Care Provider] - Additional Instructions: Take prescribed medication as directed, next dose at bedtime. Try ibuprofen for pain and inflammation. Continue mali pots, hot compresses and hot shower. Flonase for nasal congestion. Claritin for congestion build up. Increase fluid intake and get plenty of rest. Follow up with PCP. Any new or worsening signs/symptoms please seek medical attention as discussed.
== END 2017-02-24 13:16 | disposition home or self-care (01) ==
LOC: UCCORT 11:34
DX: J01.90 Acute sinusitis, unspecified (principal); E03.9 Hypothyroidism, unspecified; M32.9 Systemic lupus erythematosus, unspecified; Z90.710 Acquired absence of both cervix and uterus; Z88.8 Allergy status to other drugs, medicaments and biological substances; Z87.891 Personal history of nicotine dependence
CPT/HCPCS: 99212; A9270-GY; G0463